=== PATIENT | female | born 1980 | race Caucasian/White ===

== ENCOUNTER 2020-11-08 15:06 | Emergency (ER) | payer BC ==
--- OUTSIDE RECORDS SUMMARY | 2020-11-08 15:09 | XMS REPORT | Continuity of Care Document ---
:1980 Author Organization [facility] t Address [address] [place] [address] Care Team Providers Name Role Phone Jayjay PALAFOX K.H. Attending Clinician Problems This patient has no known problems. Allergies, Adverse Reactions, Alerts This patient has no known allergies or adverse reactions. Medications This patient has no known medications. Procedures This patient has no known procedures. Encounters Start End Encounter Admission Attending Care Care Encounter Source Date/Time Date/Time Type Type Clinicians Facility Department ID 2020-10-13 2020-10-13 Telephone ROBERT Ro [id number] 00:00:00 00:00:00 Chase Chung [id number] [id number] 0[facility] Building Results This patient has no known results.
--- NOTE | 2020-11-08 15:31 | ER ---
Nurse's Notes [facility] Name: Juana Nunez Age: 40 yrs Sex: Female : 1980 Arrival Date: 11/08/2020 Time: 15:09 Bed Waiting Private MD: Diagnosis: Presentation: 11/08 15:15 Chief complaint: Patient states: chest pressure that began this morning and has gotten aa5 worse. 15:15 Coronavirus screen: At this time, the client does not indicate any symptoms associated aa5 with coronavirus-19. Ebola Screen: Patient negative for fever greater than or equal to 101.5 degrees Fahrenheit, and additional compatible Ebola Virus Disease symptoms. Initial Sepsis Screen: Does the patient meet any 2 criteria? No. Patient's initial sepsis screen is negative. Does the patient have a suspected source of infection? No. Patient's initial sepsis screen is negative. Risk Assessment: Do you want to hurt yourself or someone else? Patient reports no desire to harm self or others. Onset of symptoms was November 08, 2020. 15:15 Acuity: PATRICK 3 aa5 15:15 Method Of Arrival: Wheelchair aa5 Triage Assessment: 15:20 General: Behavior is cooperative, anxious. Neuro: Level of Consciousness is awake, aa5 alert, obeys commands, Oriented to person, place, time, situation. Respiratory: Airway is patent Respiratory effort is even, unlabored, Respiratory pattern is regular, symmetrical. Derm: Skin is pink, warm \\T\\ dry. Historical: - Allergies: 15:15 Vicodin; aa5 - PMHx: 15:15 Hypertensive disorder; Anxiety; Mitral Valve Prolapse; aa5 - Immunization history:: Adult Immunizations unknown. - Social history:: Smoking status: unknown. Vital Signs: 15:15 BP 158 / 92; Pulse 70; Resp 18 S; Temp 99.2(TE); Pulse Ox 97% on R/A; aa5 ED Course: 15:09 Patient arrived in ED. mr 15:20 Triage completed. aa5 15:20 Arm band placed on. EKG completed in triage. Results shown to MD. aa5 15:30 Caesar Hoyt MD is Attending Physician. aa5 Administered Medications: No medications were administered Outcome: 15:20 Patient left the ED. aa5 15:20 Eloped Right after triage was completed, pt states "I can't wait in a full waiting room aa5 and I don't want to be here". Spoke to pt and notified that we will call her back to a room next, pt still decided to leave ER. Signatures: Elyssa De Luna mr VeraAndra, RN RN aa5 Corrections: (The following items were deleted from the chart) 15:30 15:29 Triage completed. aa5 aa5 15:32 15:30 Patient left the ED. aa5 aa5
[2020-11-08 15:35] VITALS: BP 158/92; TEMP 99.2; O2SAT 97
--- NOTE | 2020-11-09 17:01 | EKG ---
Test Date: 2020-11-08 Test Time: 15:17:06 [employer] Reviewer: LEATHA MEASUREMENT RESULTS: Intervals: Rate: 74 IL: 160 QRSD: 82 QT: 382 QTc: 424 [place]: P: 5 IL: 160 QRS: 41 T: 14 INTERPRETIVE STATEMENTS: Normal sinus rhythm Normal ECG No previous ECG available for comparison Electronically Signed On 11-09-20 16:58:56 CDT by Ludwin Montes
== END 2020-11-08 15:30 | disposition left against medical advice (07) ==
LOC: ER 15:06
DX: Z53.21 Procedure and treatment not carried out due to patient leaving prior to being seen by health care provider (principal)
CPT/HCPCS: 93005; 99281